=== PATIENT | male | born 1940 | race Caucasian/White ===

== ENCOUNTER 2020-03-10 16:26 | Inpatient (IN) ==
[2020-03-10] MEDS ORDERED: TRIAMCINOLONE ACETONIDE 0.5% TP PRN (21:22)
[2020-03-10] MEDS ORDERED: APPL TP PRN (21:22)
[2020-03-10] MEDS ORDERED: Albuterol 2.5 MG/3 ML NEBULIZER IH PRN (22:00)
[2020-03-10] MEDS: QUEtiapine Fumarate 25 MG TABLET PO SCH (22:01)
[2020-03-10] MEDS: Famotidine 20 MG TABLET PO SCH (22:01)
[2020-03-11] MEDS ORDERED: FluocinoNIDE 0.05% CRM 15 GM TUBE TP PRN (08:15)
[2020-03-11 08:18] LABS: BUN/Creatinine Ratio 23 (6-26); Blood Urea Nitrogen 23 mg/dL (8-23); Calcium 8.5 mg/dL (8.6-10.3); Carbon Dioxide 24 mEq/L (23-29); Chloride 107 mEq/L (98-107); Glucose 94 mg/dL (70-105); Osmolality,Calculated 289 (280-300); Potassium 4.6 mEq/L (3.5-5.1); Sodium 138 mEq/L (136-145); eGFR For African Americans > 60 (> 60); eGFR For Non-African Americans > 60 (> 60)
[2020-03-11 08:48] LABS: Basophils % 0.1 %; Eosinophils % 0.1 %; Hematocrit 30.9 % (37.5-50.1); Hemoglobin 9.9 g/dL (12.9-16.9); Immature Granulocytes % 0.7 % (0-4); Lymphocytes # 2.8 K/mcL (0.6-4.6); Lymphocytes % 14.1 %; Mean Corpuscular Hemoglobin 32.5 pg (28.0-33.3); Mean Corpuscular Volume 101.3 fL (83.0-100.0); Mean Platelet Volume 9.2 fL (9.4-12.4); Monocytes # 1.3 K/mcL (0.0-1.3); Monocytes % 6.5 %; Nucleated Red Blood Cells 0.9 /100 WBC (0); Platelet Count 337 K/mcL (140-400); Red Blood Count 3.05 M/mcL (4.19-5.50); Red Cell Distribution Width 23.9 % (11.5-14.5); Segmented Neutrophils % 78.5 %; White Blood Count 19.7 K/mcL (4.3-11.1)
[2020-03-11 08:51] LABS: Neutrophils # 15.5 K/mcL (1.6-8.9)
[2020-03-11 09:22] LABS: Anisocytosis 2+ (Not Present)
[2020-03-11] MEDS: Metoprolol XL (24 HR) Succ 50 MG TAB.ER.24H PO SCH (09:29)
[2020-03-11] MEDS: predniSONE 20 MG TABLET PO SCH (09:59)
[2020-03-11] MEDS: *HR* Heparin 5,000 UNIT/ML VIAL SQ SCH (16:56)
[2020-03-11] MEDS: Famotidine 20 MG TABLET PO SCH (20:02)
[2020-03-11] MEDS: QUEtiapine Fumarate 25 MG TABLET PO SCH (20:02)
[2020-03-11] MEDS ORDERED: Haloperidol Lactate 5 MG/ML VIAL IVP ONE (23:16)
[2020-03-12] MEDS: *HR* Heparin 5,000 UNIT/ML VIAL SQ SCH ×2 (05:38→17:00)
[2020-03-12 05:57] LABS: Hematocrit 27.1 % (37.5-50.1); Hemoglobin 8.7 g/dL (12.9-16.9); Mean Corpuscular HGB Conc 32.1 g/dL (31.6-35.5); Mean Corpuscular Volume 102.7 fL (83.0-100.0); Mean Platelet Volume 9.4 fL (9.4-12.4); Platelet Count 276 K/mcL (140-400); Red Blood Count 2.64 M/mcL (4.19-5.50); Red Cell Distribution Width 24.4 % (11.5-14.5); White Blood Count 9.8 K/mcL (4.3-11.1)
[2020-03-12 06:19] LABS: BUN/Creatinine Ratio 23 (6-26); Blood Urea Nitrogen 23 mg/dL (8-23); Calcium 8.3 mg/dL (8.6-10.3); Carbon Dioxide 24 mEq/L (23-29); Chloride 108 mEq/L (98-107); Glucose 98 mg/dL (70-105); Osmolality,Calculated 292 (280-300); Potassium 4.6 mEq/L (3.5-5.1); Sodium 139 mEq/L (136-145); eGFR For African Americans > 60 (> 60); eGFR For Non-African Americans > 60 (> 60)
[2020-03-12] MEDS: Metoprolol XL (24 HR) Succ 50 MG TAB.ER.24H PO SCH (08:00)
[2020-03-12] MEDS: predniSONE 20 MG TABLET PO SCH (08:00)
[2020-03-12] MEDS: QUEtiapine Fumarate 25 MG TABLET PO SCH (19:43)
[2020-03-12] MEDS: Famotidine 20 MG TABLET PO SCH (19:43)
[2020-03-13] MEDS: *HR* Heparin 5,000 UNIT/ML VIAL SQ SCH ×2 (05:15→17:10)
[2020-03-13] MEDS: Metoprolol XL (24 HR) Succ 50 MG TAB.ER.24H PO SCH (09:10)
[2020-03-13] MEDS: predniSONE 20 MG TABLET PO SCH (09:10)
[2020-03-13] MEDS: Famotidine 20 MG TABLET PO SCH (20:24)
[2020-03-13] MEDS: QUEtiapine Fumarate 25 MG TABLET PO SCH (20:24)
[2020-03-14] MEDS: *HR* Heparin 5,000 UNIT/ML VIAL SQ SCH ×2 (05:38→17:23)
[2020-03-14] MEDS: haloperidoL 1 MG TABLET PO PRN ×2 (08:53→20:49)
[2020-03-14] MEDS: Metoprolol XL (24 HR) Succ 50 MG TAB.ER.24H PO SCH (08:53)
[2020-03-14] MEDS: predniSONE 20 MG TABLET PO SCH (08:53)
[2020-03-14] MEDS: Acetaminophen 325 MG TABLET PO PRN (20:48)
[2020-03-14] MEDS: QUEtiapine Fumarate 25 MG TABLET PO SCH (20:48)
[2020-03-14] MEDS: Famotidine 20 MG TABLET PO SCH (20:49)
[2020-03-15] MEDS: Acetaminophen 325 MG TABLET PO PRN (04:36)
[2020-03-15] MEDS: *HR* Heparin 5,000 UNIT/ML VIAL SQ SCH ×2 (05:33→18:56)
[2020-03-15] MEDS: predniSONE 20 MG TABLET PO SCH (08:30)
[2020-03-15] MEDS: Metoprolol XL (24 HR) Succ 50 MG TAB.ER.24H PO SCH (08:30)
[2020-03-15 09:50] LABS: Basophils % 0.1 %; Hematocrit 31.6 % (37.5-50.1); Hemoglobin 10.1 g/dL (12.9-16.9); Immature Granulocytes % 0.5 % (0-4); Lymphocytes # 2.1 K/mcL (0.6-4.6); Lymphocytes % 16.9 %; Mean Corpuscular Hemoglobin 32.2 pg (28.0-33.3); Mean Corpuscular Volume 100.6 fL (83.0-100.0); Mean Platelet Volume 9.1 fL (9.4-12.4); Monocytes # 1.1 K/mcL (0.0-1.3); Monocytes % 8.9 %; Nucleated Red Blood Cells 0.5 /100 WBC (0); Platelet Count 271 K/mcL (140-400); Red Blood Count 3.14 M/mcL (4.19-5.50); Red Cell Distribution Width 22.7 % (11.5-14.5); Segmented Neutrophils % 73.6 %; White Blood Count 12.2 K/mcL (4.3-11.1)
[2020-03-15 10:09] LABS: BUN/Creatinine Ratio 25 (6-26); Blood Urea Nitrogen 25 mg/dL (8-23); Calcium 8.3 mg/dL (8.6-10.3); Carbon Dioxide 30 mEq/L (23-29); Chloride 106 mEq/L (98-107); Glucose 96 mg/dL (70-105); Osmolality,Calculated 294 (280-300); Potassium 4.1 mEq/L (3.5-5.1); Sodium 140 mEq/L (136-145); eGFR For African Americans > 60 (> 60); eGFR For Non-African Americans > 60 (> 60)
[2020-03-15] MEDS: QUEtiapine Fumarate 25 MG TABLET PO SCH (20:42)
[2020-03-15] MEDS: Famotidine 20 MG TABLET PO SCH (20:42)
[2020-03-16] MEDS: *HR* Heparin 5,000 UNIT/ML VIAL SQ SCH ×2 (05:49→17:57)
[2020-03-16] MEDS: Metoprolol XL (24 HR) Succ 50 MG TAB.ER.24H PO SCH (07:56)
[2020-03-16] MEDS: predniSONE 20 MG TABLET PO SCH (07:56)
[2020-03-16] MEDS: Famotidine 20 MG TABLET PO SCH (20:56)
[2020-03-16] MEDS: QUEtiapine Fumarate 25 MG TABLET PO SCH (20:56)
[2020-03-17] MEDS: *HR* Heparin 5,000 UNIT/ML VIAL SQ SCH (06:12)
[2020-03-17 07:31] VITALS: BP 125/76
[2020-03-17] MEDS: haloperidoL 1 MG TABLET PO PRN (08:35)
[2020-03-17] MEDS: Metoprolol XL (24 HR) Succ 50 MG TAB.ER.24H PO SCH (08:35)
[2020-03-17] MEDS: predniSONE 20 MG TABLET PO SCH (08:35)
[2020-03-17] MEDS: Acetaminophen 325 MG TABLET PO PRN (08:35)
== END 2020-03-17 12:30 | disposition home health service (06) | DRG 945 ==
LOC: INPPIK 21:12
PROVIDERS: ADMIT Family Medicine; ATTEND Family Medicine